=== PATIENT | male | born 1955 | race Two or more races ===

== ENCOUNTER 2018-12-02 10:59 | Emergency (ER) | payer OTHER ==
[~2018-12-02] VITALS: Ht 167.6 cm; Wt 86.2 kg
[2018-12-02 11:00] VITALS: BP 147/97
== END 2018-12-02 12:03 | disposition home or self-care (01) ==
LOC: ER 11:03
DX: I10 Essential (primary) hypertension (principal)

== ENCOUNTER 2019-11-27 09:26 | Emergency (ER) | payer OTHER ==
[~2019-11-27] VITALS: Ht 167.6 cm; Wt 79.4 kg
--- NOTE | 2019-11-27 09:48 | NUR ---
Patient discharged to home in stable condition. Written and verbal after care instructions given. Patient verbalizes understanding of instruction.
[2019-11-27 09:49] VITALS: BP 154/90
== END 2019-11-27 09:50 | disposition home or self-care (01) ==
LOC: ER 09:26
DX: J02.9 Acute pharyngitis, unspecified (principal)

== ENCOUNTER 2019-11-30 11:40 | Emergency (ER) | payer OTHER ==
[~2019-11-30] VITALS: Ht 167.6 cm; Wt 77.1 kg
--- NOTE | 2019-11-30 12:10 | NUR ---
STREP SWAB SENT TO LAB
--- NOTE | 2019-11-30 13:00 | NUR ---
For discharge-Patient discharged to home in stable condition. Written and verbal after care instructions given. Patient verbalizes understanding of instruction.
[2019-11-30 13:44] VITALS: BP 126/72
== END 2019-11-30 14:15 | disposition home or self-care (01) ==
LOC: ER 11:40
DX: R21 Rash and other nonspecific skin eruption (principal); J02.9 Acute pharyngitis, unspecified
CPT/HCPCS: 86403-TC; 87070-TC

== ENCOUNTER 2020-03-09 00:35 | Emergency (ER) | payer OTHER ==
[~2020-03-09] VITALS: Ht 167.6 cm; Wt 81.6 kg
--- NOTE | 2020-03-09 01:00 | NUR ---
QUINTIN FROM HOME TO ER BED 4. AAOX4. NOT IN RESP DISTRESS. AMBULATORY. CAME IN FOR EPIGASTRIC PAIN. PT REPORTS THAT IT FEELS LIKE A POUNDING WHICH STARTED 1 HR PSYCHOLOGIST CLINICAL. PT WAS REPORTED TO HAVE BP W/ SBP IN THE 200'S. PT APPEARS ANXIOUS. PT DENIES CP BUT REPORTS FEELING OF WEAKNESS AND DIZZYNESS. MD WAS AT BEDSSIDE FOR EVAL. ORDERS RECEIVED NOTED AND CARRIED OUT. IV LINE OS PRESENT UPON ARRIVAL ON L AC W/ 18G. BLOOD WAS DRAWN AND GIVEN TO TERRITORY MANAGER GENERAL SALES AT BEDSIDE. WILL CONTINUE TO MONITOR
[2020-03-09 01:18] LABS: CALCIUM, SERUM 8.6 mg/dL (8.5-10.1); CARBON DIOXIDE 30 mmol/L (21-32); CHLORIDE 100 mmol/L (98-107); GLUCOSE 111 mg/dL (74-106); POTASSIUM 3.7 mmol/L (3.5-5.1); SODIUM SERUM 138 mmol/L (136-145); UREA NITROGEN, BLOOD 12 mg/dL (7-18)
[2020-03-09 01:22] LABS: BASOPHILS # (AUTO) 0.1 /CMM (0.0-0.2); BASOPHILS % (AUTO) 0.8 % (0.0-2.0); HEMATOCRIT 40 % (39-51); HEMOGLOBIN 13.6 g/dL (13.5-17.5); LYMPHOCYTES # (AUTO) 2.9 /CMM (0.8-4.8); LYMPHOCYTES % (AUTO) 42.1 % (20.0-44.0); MEAN CORPUSCULAR HGB CONC 34 g/dl (31.0-36.0); MEAN CORPUSCULAR VOLUME 93 fL (80-96); MONOCYTES # (AUTO) 0.7 /CMM (0.1-1.30); MONOCYTES % (AUTO) 10.9 % (2.0-12.0); NEUTROPHILS # (AUTO) 2.8 /CMM (1.8-8.9); NEUTROPHILS % (AUTO) 41.2 % (43.0-81.0); PLATELET COUNT (AUTO) 263 /CMM (150-450); RED BLOOD CELL COUNT(AUTO) 4.26 MIL/uL (4.5-6.0); WHITE BLOOD COUNT (AUTO) 6.8 K/uL (4.3-11.0)
--- NOTE | 2020-03-09 02:44 | NUR ---
Labs and Imaging fax to [phone]
--- NOTE | 2020-03-09 03:23 | NUR ---
BRITTNEY MONSALVE TALKING TO DR. CROFT FROM [facility] REGARDING PT.
--- NOTE | 2020-03-09 03:35 | NUR ---
pt ambulated to bathroom on steady gait without assist
--- NOTE | 2020-03-09 03:38 | NUR ---
SPOKE WITH [facility] RN [facility] IRIS STATES DR. POTTER FROM [place] WILL CALL BACK FOR POSSIBLE TRANSFER.
--- NOTE | 2020-03-09 03:40 | NUR ---
BRITTNEY MONSALVE TALKING TO DR. POTTER FROM [place] REGARDING PT.
--- NOTE | 2020-03-09 04:00 | NUR ---
PT ACCEPTED AT [facility], ACCEPTING MD POTTER. AWAITING CALL BACK FOR BED.
--- NOTE | 2020-03-09 04:07 | NUR ---
PER YOAV PT GOING TO [facility] # AUTH: [id number]
--- NOTE | 2020-03-09 04:46 | NUR ---
CALLED CALL THE CAR FOR [facility]SP[facility] SPOKE TO AKIL CHÁVEZ 8-9AM
--- NOTE | 2020-03-09 07:28 | NUR ---
ENDORSEMENT RECEIVED FROM [facility] TANNER FOR [facility]
--- NOTE | 2020-03-09 07:30 | NUR ---
PT ENDORSED TO [facility] FOR [facility]
--- NOTE | 2020-03-09 08:24 | NUR ---
REPORT GIVEN TO ASCENCION TANNER OF [facility]
--- NOTE | 2020-03-09 09:06 | NUR ---
WAS SEEN BY DR POTTER, GIVEN VERBAL INSTRUCTION BY SAME DR. PATIENT FOR DISCHARGE.
--- NOTE | 2020-03-09 09:10 | NUR ---
SON: LO [phone] LEFT VM
--- NOTE | 2020-03-09 09:48 | NUR ---
IV removed. Catheter intact and site benign. Pressure and 4x4 applied to site. No bleeding noted. Patient assisted to waiting room in stable condition. Patient will be picked up by son. Written and verbal after care instructions given. Patient verbalizes understanding of instruction.
[2020-03-09 09:50] VITALS: BP 128/78
== END 2020-03-09 09:51 | disposition home or self-care (01) ==
LOC: ER 00:37
DX: R07.89 Other chest pain (principal); R03.0 Elevated blood-pressure reading, without diagnosis of hypertension
CPT/HCPCS: 36415; 71045-TC; 80048-TC; 84484-TC; 85025-TC; 87081-TC

== ENCOUNTER 2021-10-22 11:25 | Emergency (ER) | payer OTHER ==
[~2021-10-22] VITALS: Ht 162.6 cm; Wt 79.4 kg
--- NOTE | 2021-10-22 11:25 | NUR ---
BIBS C/O BLISTER ONE HIS R FOOT X10 DAYS. PT IS A&OX4 AND STABLE. VITALS WITHIN NORMAL LIMITS. BREATHING IS REGULAR AND UNLABORED. PT WAS SENT TO BED 1.
[2021-10-22 11:54] VITALS: BP 131/89
[2021-10-22] MEDS ORDERED: BACITRACIN ZINC OINT PACKET 1 EA PACKET TP ONE ×2 (12:40→13:00)
--- NOTE | 2021-10-22 13:00 | NUR ---
Patient discharged to home in stable condition. Written and verbal after care instructions given. Patient verbalizes understanding of instruction.
== END 2021-10-22 13:02 | disposition home or self-care (01) ==
LOC: ER 11:30
DX: S90.821A Blister (nonthermal), right foot, initial encounter (principal); X58.XXXA Exposure to other specified factors, initial encounter; Y93.89 Activity, other specified; Y92.89 Other specified places as the place of occurrence of the external cause; Y99.8 Other external cause status; I10 Essential (primary) hypertension

== ENCOUNTER 2022-01-27 18:05 | Emergency (ER) | payer OTHER ==
[~2022-01-27] VITALS: Ht 167.6 cm; Wt 72.6 kg
--- NOTE | 2022-01-27 18:15 | NUR ---
BIBS THIS 66YO MALE WITH CC OF LEFT FLANK PAIN. PLACED COMFORTABLE ON ER TABLE. VITALS CHECKED.
[2022-01-27] MEDS ORDERED: MORPHINE SULFATE INJ 2 MG/ML DISP.SYRIN IV PRN (18:30)
--- NOTE | 2022-01-27 18:30 | NUR ---
SEEN BY KERI PHILLIPS AT BEDSIDE.
[2022-01-27] MEDS ORDERED: MORPHINE SULFATE INJ 4 MG/ML DISP.SYRIN ONE (18:46)
[2022-01-27 18:50] LABS: BILIRUBIN,URINE NEGATIVE (NEGATIVE); COLOR,URINE DARK YELLOW (YELLOW); LEUKOCYTE ESTERASE ,URINE NEGATIVE (NEGATIVE); NITRITE, URINE NEGATIVE (NEGATIVE); PH,URINE 5.5 (5.0-8.0); PROTEIN,URINE 100 mg/dl (NEGATIVE); UGLUCOSE NEGATIVE (NEGATIVE); UROBILINOGEN,URINE 0.2 EU/dL (0.2)
--- NOTE | 2022-01-27 18:50 | NUR ---
IV CANNULA G20 INSERTED ON LEFT AC.
--- NOTE | 2022-01-27 18:55 | NUR ---
CLINCHING MACHINE OPERATOR AT BEDSIDE
[2022-01-27 19:14] LABS: CALCIUM, SERUM 8.6 mg/dL (8.5-10.1); CREATININE 1.2 mg/dL (0.6-1.3); POTASSIUM 3.6 mmol/L (3.5-5.1)
[2022-01-27 19:40] LABS: BILIRUBIN,DIRECT 0.1 mg/dL (0.0-0.2); BILIRUBIN,TOTAL 0.7 mg/dL (0.2-1.0); TOTAL PROTEIN, SERUM 7.6 g/dL (6.4-8.2)
--- NOTE | 2022-01-27 20:00 | NUR ---
PT WHEELED TO RADIOLOGY FOR CT OF ABDOMEN VIA BED.
[2022-01-27 20:04] LABS: BASOPHILS % (AUTO) 0.6 % (0.0-2.0); EOSINOPHILS % (AUTO) 3.1 % (0.0-6.0); HEMATOCRIT 41 % (39-51); HEMOGLOBIN 14.2 g/dL (13.5-17.5); LYMPHOCYTES # (AUTO) 1.9 K/uL (0.8-4.8); MEAN CORPUSCULAR HGB CONC 35 g/dl (31.0-36.0); MEAN CORPUSCULAR VOLUME 94 fL (80-96); MONOCYTES # (AUTO) 0.7 K/uL (0.1-1.30); MONOCYTES % (AUTO) 8.1 % (2.0-12.0); NEUTROPHILS # (AUTO) 5.8 K/uL (1.8-8.9); NEUTROPHILS % (AUTO) 66.2 % (43.0-81.0); PLATELET COUNT (AUTO) 250 K/uL (150-450); RED BLOOD CELL COUNT(AUTO) 4.39 MIL/uL (4.5-6.0); WHITE BLOOD COUNT (AUTO) 8.8 K/uL (4.3-11.0)
[2022-01-27 20:07] LABS: BACTERIA,URINE Moderate /HPF (None Seen); CALCIUM OXALATE CRYSTALS,UR Moderate /HPF (None Seen); RBC,URINE 21-50 /HPF (0-2); SQUAMOUS EPITHELIAL CELL,UR Few /HPF (None Seen)
[2022-01-27] MEDS ORDERED: IV NS 0.9% 1,000 ML BAG IV ONE (21:00)
[2022-01-27] MEDS ORDERED: TAMS-12 PO (21:14)
[2022-01-27] MEDS ORDERED: HYDR-3976 GT (21:14)
--- NOTE | 2022-01-27 21:37 | NUR ---
IV removed. Catheter intact and site benign. Pressure and 4x4 applied to site. No bleeding noted.Patient discharged to home in stable condition. Rx and Written and verbal after care instructions given. Patient verbalizes understanding of instruction. pt was provided with a urine strainer
--- NOTE | 2022-01-27 21:44 | NUR ---
Patient discharged to home in stable condition. Written and verbal after care instructions given. Patient verbalizes understanding of instruction.
[2022-01-27 21:51] VITALS: BP 112/86
== END 2022-01-27 21:52 | disposition home or self-care (01) ==
LOC: ER 18:08
DX: N20.0 Calculus of kidney (principal); I10 Essential (primary) hypertension
CPT/HCPCS: 36415; 74176; 80048; 80076; 81001; 85025; 87086; 96361; 96374; 99284; J2270; J7030

== ENCOUNTER 2022-08-19 19:29 | Emergency (ER) | payer MEDICARE, OTHER ==
[~2022-08-19] VITALS: Ht 167.6 cm; Wt 79.4 kg
[~2022-08-19 19:29] MED LIST: HYDR-3976 GT; TAMS-12 PO
--- NOTE | 2022-08-19 20:10 | NUR ---
TO ER BED 1. BIBSELF C/O SOB THAT STARTED THIS MORNING, O2SAT NOTED AT 98% ROOM AIR. RR EVEN AND NON LABORED. PT IS ALERT AND ORIENTED. CONNECTED TO MONITOR. AWAITING MD THOMAS
[2022-08-19 21:21] LABS: BASOPHILS # (AUTO) 0.1 K/uL (0.0-0.2); BASOPHILS % (AUTO) 1.1 % (0.0-2.0); EOSINOPHILS % (AUTO) 4.1 % (0.0-6.0); HEMATOCRIT 36 % (39-51); HEMOGLOBIN 11.8 g/dL (13.5-17.5); LYMPHOCYTES # (AUTO) 1.7 K/uL (0.8-4.8); LYMPHOCYTES % (AUTO) 31.8 % (20.0-44.0); MEAN CORPUSCULAR HGB CONC 33 g/dl (31.0-36.0); MEAN CORPUSCULAR VOLUME 93 fL (80-96); MONOCYTES # (AUTO) 0.4 K/uL (0.1-1.30); PLATELET COUNT (AUTO) 283 K/uL (150-450); RED BLOOD CELL COUNT(AUTO) 3.82 MIL/uL (4.5-6.0); WHITE BLOOD COUNT (AUTO) 5.5 K/uL (4.3-11.0)
[2022-08-19 21:45] LABS: CALCIUM, SERUM 8.6 mg/dL (8.5-10.1); CARBON DIOXIDE 28 mmol/L (21-32); CHLORIDE 106 mmol/L (98-107); CREATININE 1.2 mg/dL (0.6-1.3); GLUCOSE 101 mg/dL (74-106); POTASSIUM 3.8 mmol/L (3.5-5.1); SODIUM SERUM 141 mmol/L (136-145); UREA NITROGEN, BLOOD 23 mg/dL (7-18)
[2022-08-19 22:14] VITALS: BP 149/89
--- NOTE | 2022-08-19 22:14 | NUR ---
Patient discharged to home in stable condition. Written and verbal after care instructions given. Patient verbalizes understanding of instruction.
== END 2022-08-19 22:14 | disposition home or self-care (01) ==
LOC: ER 19:31
DX: I10 Essential (primary) hypertension (principal); R07.9 Chest pain, unspecified; Z79.899 Other long term (current) drug therapy
CPT/HCPCS: 36415; 71045-TC; 80048-TC; 83880; 84484-TC; 85025-TC

== ENCOUNTER 2023-09-24 16:54 | Emergency (ER) | payer MEDICARE, OTHER ==
[~2023-09-24] VITALS: Ht 167.6 cm; Wt 81.6 kg
[2023-09-24 19:27] LABS: BASOPHILS % (AUTO) 0.4 % (0.0-2.0); EOSINOPHILS # (AUTO) 0.4 K/uL (0.0-0.7); EOSINOPHILS % (AUTO) 4.6 % (0.0-6.0); HEMATOCRIT 39 % (39-51); HEMOGLOBIN 13.2 g/dL (13.5-17.5); LYMPHOCYTES # (AUTO) 1.6 K/uL (0.8-4.8); LYMPHOCYTES % (AUTO) 20.5 % (20.0-44.0); MEAN CORPUSCULAR HEMOGLOBIN 31 PG (26.0-33.0); MEAN CORPUSCULAR HGB CONC 34 g/dl (31.0-36.0); MEAN CORPUSCULAR VOLUME 92 fL (80-96); MONOCYTES # (AUTO) 0.7 K/uL (0.1-1.30); MONOCYTES % (AUTO) 9.1 % (2.0-12.0); NEUTROPHILS # (AUTO) 5.2 K/uL (1.8-8.9); NEUTROPHILS % (AUTO) 65.4 % (43.0-81.0); PLATELET COUNT (AUTO) 274 K/uL (150-450); RED BLOOD CELL COUNT(AUTO) 4.24 MIL/uL (4.5-6.0); RED CELL DISTRIBUTION WIDTH 13.4 % (11.5-15.0); WHITE BLOOD COUNT (AUTO) 7.9 K/uL (4.3-11.0)
[2023-09-24 19:53] LABS: CALCIUM, SERUM 8.6 mg/dL (8.5-10.1); CARBON DIOXIDE 29 mmol/L (21-32); CHLORIDE 102 mmol/L (98-107); CREATININE 1.1 mg/dL (0.6-1.3); GLUCOSE 92 mg/dL (74-106); POTASSIUM 3.7 mmol/L (3.5-5.1); SODIUM SERUM 139 mmol/L (136-145); UREA NITROGEN, BLOOD 18 mg/dL (7-18)
[2023-09-24 20:27] VITALS: BP 138/76; TEMP 98; O2SAT 98
== END 2023-09-24 20:28 | disposition home or self-care (01) ==
LOC: ER 17:02
DX: I10 Essential (primary) hypertension (principal); E78.00 Pure hypercholesterolemia, unspecified; Z79.899 Other long term (current) drug therapy
CPT/HCPCS: 36415; 71045-TC; 80048-TC; 84484-TC; 85025-TC

== ENCOUNTER 2023-11-25 13:08 | Emergency (ER) | payer MEDICARE, OTHER ==
[~2023-11-25] VITALS: Ht 167.6 cm; Wt 88.5 kg
[2023-11-25 15:03] LABS: BASOPHILS % (AUTO) 0.5 % (0.0-2.0); EOSINOPHILS # (AUTO) 0.2 K/uL (0.0-0.7); EOSINOPHILS % (AUTO) 5.2 % (0.0-6.0); HEMATOCRIT 40 % (39-51); HEMOGLOBIN 13.4 g/dL (13.5-17.5); LYMPHOCYTES # (AUTO) 1.4 K/uL (0.8-4.8); MEAN CORPUSCULAR HEMOGLOBIN 31 PG (26.0-33.0); MEAN CORPUSCULAR HGB CONC 34 g/dl (31.0-36.0); MEAN CORPUSCULAR VOLUME 91 fL (80-96); MONOCYTES # (AUTO) 0.4 K/uL (0.1-1.30); NEUTROPHILS # (AUTO) 2.3 K/uL (1.8-8.9); NEUTROPHILS % (AUTO) 52.3 % (43.0-81.0); PLATELET COUNT (AUTO) 245 K/uL (150-450); RED BLOOD CELL COUNT(AUTO) 4.37 MIL/uL (4.5-6.0); WHITE BLOOD COUNT (AUTO) 4.5 K/uL (4.3-11.0)
[2023-11-25 15:20] LABS: CALCIUM, SERUM 8.9 mg/dL (8.5-10.1); CARBON DIOXIDE 28 mmol/L (21-32); CHLORIDE 103 mmol/L (98-107); GLUCOSE 102 mg/dL (74-106); POTASSIUM 4.1 mmol/L (3.5-5.1); SODIUM SERUM 139 mmol/L (136-145); UREA NITROGEN, BLOOD 12 mg/dL (7-18)
[2023-11-25 16:01] LABS: PARTIAL THROMBOPLASTIN TIME 29.9 SEC (24.3-34.3); PROTHROMBIN TIME 10.6 SECS (9.2-11.1)
[2023-11-25 16:09] VITALS: BP 148/71; TEMP 98.2; O2SAT 98
== END 2023-11-25 16:09 | disposition home or self-care (01) ==
LOC: ER 13:08
DX: I10 Essential (primary) hypertension (principal); E78.00 Pure hypercholesterolemia, unspecified
CPT/HCPCS: 36415; 70450-TC; 71045-TC; 80048-TC; 84484-TC; 85025-TC; 85730-TC

== ENCOUNTER 2024-07-09 22:39 | Emergency (ER) | payer MEDICARE, OTHER ==
[~2024-07-09] VITALS: Ht 167.6 cm; Wt 77.1 kg
[2024-07-09 23:42] LABS: BASOPHILS # (AUTO) 0.1 K/uL (0.0-0.2); BASOPHILS % (AUTO) 0.8 % (0.0-2.0); EOSINOPHILS # (AUTO) 0.2 K/uL (0.0-0.7); EOSINOPHILS % (AUTO) 2.9 % (0.0-6.0); HEMATOCRIT 41 % (39-51); HEMOGLOBIN 13.8 g/dL (13.5-17.5); LYMPHOCYTES # (AUTO) 1.7 K/uL (0.8-4.8); LYMPHOCYTES % (AUTO) 23.5 % (20.0-44.0); MEAN CORPUSCULAR HEMOGLOBIN 31 PG (26.0-33.0); MEAN CORPUSCULAR HGB CONC 33 g/dl (31.0-36.0); MEAN CORPUSCULAR VOLUME 94 fL (80-96); MONOCYTES # (AUTO) 0.6 K/uL (0.1-1.30); MONOCYTES % (AUTO) 7.8 % (2.0-12.0); NEUTROPHILS # (AUTO) 4.9 K/uL (1.8-8.9); PLATELET COUNT (AUTO) 244 K/uL (150-450); RED BLOOD CELL COUNT(AUTO) 4.41 MIL/uL (4.5-6.0); RED CELL DISTRIBUTION WIDTH 13.6 % (11.5-15.0); WHITE BLOOD COUNT (AUTO) 7.5 K/uL (4.3-11.0)
[2024-07-09 23:54] LABS: CARBON DIOXIDE 25 mmol/L (21-32); CHLORIDE 105 mmol/L (98-107); GLUCOSE 106 mg/dL (74-106); POTASSIUM 3.6 mmol/L (3.5-5.1); SODIUM SERUM 142 mmol/L (136-145); UREA NITROGEN, BLOOD 17 mg/dL (7-18)
[2024-07-10 03:17] VITALS: BP 122/76; TEMP 98.1; O2SAT 97
== END 2024-07-10 03:17 | disposition home or self-care (01) ==
LOC: ER 22:45
DX: R00.2 Palpitations (principal); I10 Essential (primary) hypertension; E78.00 Pure hypercholesterolemia, unspecified; Z79.899 Other long term (current) drug therapy
CPT/HCPCS: 36415; 71045-TC; 80048-TC; 83880; 84484-TC; 85025-TC

== ENCOUNTER 2024-09-21 09:30 | Emergency (ER) | payer OTHER ==
[~2024-09-21] VITALS: Ht 167.6 cm; Wt 74.8 kg
[2024-09-21] MEDS ORDERED: IBUP-1490 PO (11:57)
[2024-09-21] MEDS ORDERED: IBUPROFEN 600 MG TABLET ONE (12:00)
[2024-09-21] MEDS: IBUPROFEN 600 MG TABLET PO ONE (12:00)
[2024-09-21 12:03] VITALS: BP 130/72; TEMP 97; O2SAT 99
== END 2024-09-21 12:04 | disposition home or self-care (01) ==
LOC: ER 09:35
DX: S20.211A Contusion of right front wall of thorax, initial encounter (principal); S80.02XA Contusion of left knee, initial encounter; S80.01XA Contusion of right knee, initial encounter; E78.00 Pure hypercholesterolemia, unspecified; I10 Essential (primary) hypertension; Z87.442 Personal history of urinary calculi; W18.39XA Other fall on same level, initial encounter; Y93.01 Activity, walking, marching and hiking; Y92.89 Other specified places as the place of occurrence of the external cause; Y99.8 Other external cause status
CPT/HCPCS: 71100-TC

== ENCOUNTER 2025-10-01 21:10 | Emergency (ER) | payer OTHER ==
[~2025-10-01] VITALS: Ht 167.6 cm; Wt 80.7 kg
[~2025-10-01 21:10] MED LIST changes: +IBUP-1490 PO
[2025-10-01 22:49] LABS: PLATELET COUNT (AUTO) 237 K/uL (150-450); RED BLOOD CELL COUNT(AUTO) 4.35 MIL/uL (4.5-6.0); RED CELL DISTRIBUTION WIDTH 13.1 % (11.5-15.0); WHITE BLOOD COUNT (AUTO) 5.7 K/uL (4.3-11.0)
[2025-10-01 22:54] LABS: CALCIUM, SERUM 8.4 mg/dL (8.5-10.1); CREATININE 1.0 mg/dL (0.6-1.3); SODIUM SERUM 138 mmol/L (136-145); UREA NITROGEN, BLOOD 12 mg/dL (7-18)
[2025-10-01 23:41] VITALS: BP 161/98; TEMP 98.2; O2SAT 97
== END 2025-10-01 23:41 | disposition home or self-care (01) ==
LOC: ER 21:13
DX: R03.0 Elevated blood-pressure reading, without diagnosis of hypertension (principal); I10 Essential (primary) hypertension; Z79.899 Other long term (current) drug therapy; E78.00 Pure hypercholesterolemia, unspecified; Z87.442 Personal history of urinary calculi
CPT/HCPCS: 36415; 71045-TC; 80048-TC; 84484-TC; 85025-TC